=== PATIENT | female | born 2000 | race Caucasian/White ===

== ENCOUNTER 2021-01-15 14:36 | Outpatient (CLI) | payer OTHER ==
[~2021-01-15 14:36] MED LIST: OMNICEF 300 MG300 MG PO
== END 2021-01-15 15:46 | disposition home or self-care (01) ==
LOC: GENOP 14:36
DX: O41.8X20 Other specified disorders of amniotic fluid and membranes, second trimester, not applicable or unspecified (principal); O99.012 Anemia complicating pregnancy, second trimester; Z3A.22 22 weeks gestation of pregnancy
CPT/HCPCS: 81001; 83518; G0463

== ENCOUNTER 2021-03-28 23:36 | Emergency (ER) | payer OTHER ==
[2021-03-29 00:50] LABS: HEMOGLOBIN 11.1 gm/dl (12.3-15.3); RED BLOOD COUNT 3.82 M/UL (4.00-5.10); WHITE BLOOD COUNT 11.4 K/UL (4.5-11.0)
[2021-03-29 01:09] LABS: BUN/CREATININE RATIO 14 (0-10)
== END 2021-03-29 01:46 | disposition home or self-care (01) ==
LOC: ER1 23:36
PROVIDERS: Physician Assistant
DX: O9A.213 Injury, poisoning and certain other consequences of external causes complicating pregnancy, third trimester (principal); T75.4XXA Electrocution, initial encounter; W86.8XXA Exposure to other electric current, initial encounter; Z3A.32 32 weeks gestation of pregnancy
CPT/HCPCS: 80053; 82550; 82553; 83735; 83874; 84484; 85025; 93005; 99284

== ENCOUNTER 2021-05-11 16:58 | Inpatient (IN) | payer OTHER ==
[~2021-05-11] VITALS: Ht 162.6 cm; Wt 90.7 kg
[2021-05-11 17:51] LABS: HEMOGLOBIN 11.5 gm/dl (12.3-15.3); RED BLOOD COUNT 4.04 M/UL (4.00-5.10); WHITE BLOOD COUNT 10.2 K/UL (4.5-11.0)
[2021-05-12] MEDS ORDERED: IBUPROFEN600 MG PO (16:29)
[2021-05-12] MEDS ORDERED: HYDROCODON-ACE1 EAC4 PO (16:29)
[2021-05-12] MEDS ORDERED: DOCUSATE SODIU100 MG PO (16:29)
[2021-05-13 04:50] LABS: HEMOGLOBIN 8.7 gm/dl (12.3-15.3)
== END 2021-05-13 18:51 | disposition home or self-care (01) | DRG 807 ==
LOC: GENOP 16:58 → OB 17:17
PROVIDERS: Obstetrics & Gynecology; ADMIT Obstetrics & Gynecology
PROC: 10E0XZZ Delivery of Products of Conception, External Approach (ICD-10-PCS; principal; 2021-05-12)
PROC: 4A1HXCZ Monitoring of Products of Conception, Cardiac Rate, External Approach (ICD-10-PCS; 2021-05-12)
PROC: 10907ZC Drainage of Amniotic Fluid, Therapeutic from Products of Conception, Via Natural or Artificial Opening (ICD-10-PCS; 2021-05-12)
PROC: 0HQ9XZZ Repair Perineum Skin, External Approach (ICD-10-PCS; 2021-05-12)
PROC: 3E033VJ Introduction of Other Hormone into Peripheral Vein, Percutaneous Approach (ICD-10-PCS; 2021-05-12)
PROC: 10H07YZ Insertion of Other Device into Products of Conception, Via Natural or Artificial Opening (ICD-10-PCS; 2021-05-12)
DX: O70.0 First degree perineal laceration during delivery (principal); Z37.0 Single live birth; O75.89 Other specified complications of labor and delivery; Z3A.39 39 weeks gestation of pregnancy
CPT/HCPCS: 36415; 51702; 81001; 82800; 85014; 85018; 85025; 90471; 90715; J2590; J2795; J3010; J7120; U0003

== ENCOUNTER 2022-01-08 02:46 | Emergency (ER) | payer OTHER ==
[~2022-01-08 02:46] MED LIST changes: +DOCUSATE SODIU100 MG PO; +HYDROCODON-ACE1 EAC4 PO; +IBUPROFEN600 MG PO
[2022-01-08 03:24] LABS: HEMOGLOBIN 12.7 gm/dl (12.3-15.3); RED BLOOD COUNT 4.8 M/UL (4.00-5.10); WHITE BLOOD COUNT 11.6 K/UL (4.5-11.0)
[2022-01-08 03:48] LABS: BUN/CREATININE RATIO 18 (0-10)
[2022-01-08] MEDS ORDERED: ZOFRAN 4 MG TAB4 MG PO (06:56)
== END 2022-01-08 07:10 | disposition home or self-care (01) ==
LOC: ER1 02:46
PROVIDERS: Family Medicine
DX: K59.00 Constipation, unspecified (principal); R10.10 Upper abdominal pain, unspecified; R11.2 Nausea with vomiting, unspecified
CPT/HCPCS: 36415; 80053; 81001; 83690; 84703; 85025; 96374; 99284; C9113; J7030; Q9967

== ENCOUNTER → 2022-01-25 | Day surgery (SDC) | payer OTHER ==
[~2022-01-25] MED LIST changes: +ZOFRAN 4 MG TAB4 MG PO
== END | disposition home or self-care (01) ==
LOC: OR 05:47
DX: K80.64 Calculus of gallbladder and bile duct with chronic cholecystitis without obstruction (principal); E66.9 Obesity, unspecified; Z68.34 Body mass index [BMI] 34.0-34.9, adult
CPT/HCPCS: 84703; C1729; J0690; J1100; J1170; J1885; J2001; J2250; J2405; J2704; J2710; J3010; J7030; J7120